=== PATIENT | male | born 2000 | race Caucasian/White ===

== ENCOUNTER 2018-08-08 22:15 | Emergency (ER) | payer MEDICAID ==
[~2018-08-08] VITALS: Ht 157.5 cm; Wt 101.8 kg
[~2018-08-08 22:15] MED LIST: EQ IBUPROFEN200 MG OR
[2018-08-09 01:19] LABS: HEMATOCRIT 40.4 % (39.0-50.0); HEMOGLOBIN 13.7 g/dl (14.0-18.0); IMMATURE GRANULOCYTES 0.3 % (0.0-5.0); MEAN CORPUSCULAR HGB CONC 33.9 g/L CALC (32.0-36.0); NEUT# 7.61 thou/uL (1.82-7.42); RED BLOOD COUNT 4.56 mill/uL (4.70-6.10); RED CELL DISTRI WIDTH 11.9 % (11.5-15.5)
[2018-08-09 01:23] LABS: MEAN CELL VOLUME 88.6 fL CALC (80.0-100.0)
[2018-08-09 01:35] LABS: ALBUMIN 4.2 g/dL (3.2-5.0); ANION GAP 17 (6-22 (CALC)); BILIRUBIN, TOTAL 0.4 mg/dL (0.0-1.4); BUN 11 mg/dL (9-20); BUN/CREATININE RATIO 16 (12-20 (CALC)); CARBON DIOXIDE 26 mmol/l (22-30); CHLORIDE 99 mmol/l (95-108); CREATININE 0.7 mg/dL (0.7-1.3); GFR > 60 ML/MIN (>=60 (CALC)); GFR FOR AFR.AMER. > 60 ML/MIN (>=60 (CALC)); POTASSIUM 4.2 mmol/l (3.5-5.1); SGOT/AST 29 u/l (17-59); SODIUM 138 mmol/l (137-146); TOTAL PROTEIN 7.1 g/dL (6.3-8.2)
[2018-08-09 01:36] LABS: ALKALINE PHOSPHATASE 104 u/l (38-126)
[2018-08-09] MEDS ORDERED: CIPROFLOXACN500 MG PO (02:32)
[2018-08-09] MEDS ORDERED: LORTAB 1010 MG PO (02:37)
[2018-08-09 03:14] VITALS: BP 149/98
== END 2018-08-09 03:09 | disposition home or self-care (01) ==
LOC: ED 22:15
PROVIDERS: Emergency Medicine
DX: N47.2 Paraphimosis (principal)
CPT/HCPCS: J2060